=== PATIENT | female | born 1965 | race Caucasian/White ===

== ENCOUNTER → 2016-11-03 | Outpatient (CLI) | payer OTHER ==
[~2016-11-03] MED LIST: ASPIRIN 81MG TA81 MG PO; BUPROPION HYDR150 M1 PO; BYSTOLIC5 MG PO; MEGA BIOTIN10000 MCG PO; NOMEDS XX; NORCO 325 MG-51 TAB PO; ONE DAILY FOR1 EACH PO; PEPCID 20MG TAB20 MG PO; PHENERGAN 2525 MG/ML PO; PROTONIX 40MG T40 MG PO; REMERON15 MG PO; WELLBUTRIN XL300 MG PO; XANAX 0.25MG0.25 MG PO; XELODA500 MG PO; ZEBETA5 MG PO
[2016-11-03 11:15] VITALS: BP 127/83
== END ==
LOC: COP 10:00
DX: C18.9 Malignant neoplasm of colon, unspecified (principal); Z45.2 Encounter for adjustment and management of vascular access device
CPT/HCPCS: J1642

== ENCOUNTER → 2016-11-20 | Outpatient (CLI) | payer OTHER ==
[~2016-11-20] MED LIST changes: +PREDNISONE 20MG20 MG PO
--- NOTE | 2016-11-20 16:12 | RADIOLOGY REPORT PS360 ---
US THYROID HISTORY: Follow-up thyroid nodule THYROID NODULE ORDERING PHYSICIAN: Glenis Starr MD PATIENT AGE: 50 years COMPARISON: 04/09/2016 FINDINGS: Right lobe: 4.1 x 1.1 x 1.7 cm. Homogeneous echogenicity. A 2 mm cyst is present in the mid aspect of the right lobe. Left lobe: 4.1 x 1.3 x 1.9 cm. An isoechoic 6 x 5 mm nodule is present in the mid polar region on the left. A 5 mm slightly hypoechoic nodule is present in the lower pole on the left. Isthmus: Mildly thickened at 4 mm IMPRESSION: Stable appearance of the thyroid gland with a small cyst on the right and 2 subcentimeter nodules on the left which are stable. No new abnormalities evident
== END ==
LOC: RAD 14:16
DX: E04.1 Nontoxic single thyroid nodule (principal)

== ENCOUNTER → 2016-12-03 | Outpatient (CLI) | payer OTHER ==
--- NOTE | 2016-12-03 12:29 | RADIOLOGY REPORT PS360 ---
BONE DENSITOMETRY(HIP:LT SPINE HISTORY: VERTEBRAL FX,LOW BACK PAIN ORDERING PHYSICIAN: BRIANA CALLE PATIENT AGE: 51 years COMPARISON: None FINDINGS: The BMD measured at the right femoral neck is 0.922 g/cm squared with a T score of -0.8. This is considered normal according to the World Health Organization criteria. Fracture risk is low. Recommend follow up exam november 2018. The mean density of L1 L4 is 1.281 g/sq cm with a T score of 0.8. Images demonstrate a sclerotic region in the right hip at the intertrochanteric region which may be due to bone island IMPRESSION: Normal bone density
== END ==
LOC: RAD 10:46
DX: M54.5 Low back pain (principal)

== ENCOUNTER 2017-03-25 09:14 | Outpatient (CLI) | payer OTHER ==
[~2017-03-25 09:14] MED LIST changes: +CENTRUM SILVER1 EACH PO
[2017-03-25 09:19] LABS: HEMOGLOBIN 14.4 g/dL (12.2-16.2); LYMPH # 1.8 K/mm3 (0.7-4.5); LYMPH % 23.4 % (10-50.0)
[2017-03-25 09:32] LABS: BUN 10 mg/dL (7-18)
[2017-03-25 09:36] LABS: GFR (ESTIMATED) 88 ML/MIN (59-)
--- NOTE | 2017-03-25 12:06 | RADIOLOGY REPORT PS360 ---
CT CHEST W/ CONTRAST INDICATION: COLON CANCER, follow-up: Cancer ORDERING PHYSICIAN: Guy Meléndez MD PATIENT AGE: 51 years COMPARISON: None TECHNIQUE: Axial images are obtained with 75 mL Isovue-370 contrast. Sagittal and coronal reformatted images are reviewed as well. FINDINGS: Small aortopulmonic lymph node once again noted slightly less apparent when compared to the previous exam. No mediastinal or hilar adenopathy or mass. There is an azygos fissure is a normal variant. Calcified nodules present in the right upper lobe posteriorly as before. Calcified granuloma is present in the right upper lobe anteriorly as before there is a stable 3 mm noncalcified nodule right upper lobe. A subtle noncalcified 3 mm nodular opacity is present in the left apex anteriorly and one posteriorly both stable. No new nodules are evident. No infiltrates or effusions. No destructive bony process. MediPort catheter is present via right subclavian approach IMPRESSION: Stable CT appearance of the chest with no convincing evidence of metastatic disease
--- NOTE | 2017-03-25 12:11 | RADIOLOGY REPORT PS360 ---
CT ABD PELVIS W/ CONTRAST CLINICAL INDICATION: Follow-up cancer of the colon COLON CANCER ORDERING PHYSICIAN: Guy Meléndez MD PATIENT AGE: 51 years COMPARISON: 12/25/2016 TECHNIQUE: Axial images obtained with sagittal and coronal reformats. PROCEDURE: Oral Contrast: Redicat IV Contrast: 75 mL Isovue-370 performed in conjunction with the chest CT. FINDINGS: No focal liver lesion evident. The liver, gallbladder, spleen, adrenal glands, and pancreas have an unremarkable appearance. No renal calculi or hydronephrosis. No renal mass is evident. Small left renal cortical cysts unchanged. No retroperitoneal or intraperitoneal adenopathy or mass. Prior hysterectomy. No evidence of appendicitis or diverticulitis. Unremarkable appearing urinary bladder. No lytic or blastic changes there is a small sclerotic focus involving the L5 vertebral body superiorly nonspecific and unchanged. Sclerotic area also is present in the right proximal femur at the intertrochanteric region may be due to bone island unchanged. IMPRESSION: 1. No change with no acute finding. 2. No convincing evidence of metastatic disease
== END 2017-03-25 10:05 | disposition home or self-care (01) ==
LOC: COP 09:14 → RAD 09:14
PROVIDERS: Internal Medicine
DX: C18.9 Malignant neoplasm of colon, unspecified (principal)
CPT/HCPCS: J1642; Q9967

== ENCOUNTER 2017-04-22 09:07 | Outpatient (CLI) | payer OTHER | END 2017-04-22 09:20 | disposition home or self-care (01) | LOC: COP 09:07 | DX: C18.9 Malignant neoplasm of colon, unspecified (principal); C78.7 Secondary malignant neoplasm of liver and intrahepatic bile duct; Z45.2 Encounter for adjustment and management of vascular access device | CPT/HCPCS: J1642 ==

== ENCOUNTER 2017-06-05 13:30 | Outpatient (CLI) | payer OTHER ==
[2017-06-05 13:40] VITALS: BP 129/76
== END 2017-06-05 13:50 | disposition home or self-care (01) ==
LOC: COP 13:30
DX: C18.9 Malignant neoplasm of colon, unspecified (principal); C78.7 Secondary malignant neoplasm of liver and intrahepatic bile duct; Z45.2 Encounter for adjustment and management of vascular access device
CPT/HCPCS: J1642

== ENCOUNTER 2017-06-25 08:41 | Outpatient (CLI) | payer OTHER ==
[2017-06-25 08:46] LABS: HEMOGLOBIN 14.6 g/dL (12.2-16.2); LYMPH # 1.2 K/mm3 (0.7-4.5); LYMPH % 17.3 % (10-50.0)
[2017-06-25 08:57] LABS: BUN 10 mg/dL (7-18)
[2017-06-25 08:58] LABS: GFR (ESTIMATED) 66 ML/MIN (59-)
--- NOTE | 2017-06-25 10:45 | RADIOLOGY REPORT PS360 ---
CT CHEST W/ CONTRAST INDICATION: Follow-up: Cancer and thyroid nodules COLON CA, THYROID NODULES ORDERING PHYSICIAN: Guy Meléndez MD PATIENT AGE: 51 years COMPARISON: 03/25/2017 TECHNIQUE: Axial images are obtained with contrast. Sagittal and coronal reformatted images are reviewed as well. FINDINGS: There is a right subclavian Mediport catheter present. There is an azygos fissure is a normal variant. An aortopulmonic lymph node is again noted measuring 16 x 11 mm not significant changed. No other enlarged mediastinal or hilar nodes are evident. No obvious thyroid nodules however the superior aspect of the upper poles are not completely imaged There are scattered calcified granulomas. No suspicious pulmonary nodules are evident with no convincing evidence of pulmonary metastasis. The previously described 3 mm nodules in both upper lobes are unchanged. No new nodules are evident. No effusions or infiltrates. No bony destructive process. IMPRESSION: Stable CT appearance of the chest with no convincing evidence of metastatic disease. Stable mildly enlarged aortopulmonic lymph node
--- NOTE | 2017-06-25 17:05 | RADIOLOGY REPORT PS360 ---
CT SOFT TISSUE NECK W/CONTRAST INDICATION: COLON CA, THYROID NODULES ORDERING PHYSICIAN: Guy Meléndez MD PATIENT AGE: 51 years COMPARISON: Ultrasound dating 09/17/2015 from outside institution TECHNIQUE: Axial images are obtained with contrast. Sagittal and coronal reformatted images are reviewed as well. FINDINGS: There are scattered small lymph nodes present in the neck bilaterally in the jugulodigastric area measuring up to 15 x 14 mm on the right and 12 x 7 mm on the left. The thyroid gland shows fairly homogeneous texture. There is a subtle 4 mm area of decreased enhancement in the mid aspect of the left lobe medially which may correspond to the sonographic abnormality. No other significant anomalies are evident. There are mild degenerative changes in the cervical spine. The nasopharynx has an unremarkable appearance. No sinus air-fluid level evident. No mastoid effusion. The epiglottis is unremarkable glottic region has an unremarkable appearance. IMPRESSION: 1. 4 mm isodensity in the left lobe of the thyroid gland suggesting a small nodule that corresponds to the outside ultrasound. 2. Scattered small lymph nodes in the neck. 3. Otherwise negative CT of the neck with contrast IMPRESSION:
--- NOTE | 2017-06-25 17:14 | RADIOLOGY REPORT PS360 ---
CT ABD PELVIS W/ CONTRAST CLINICAL INDICATION: COLON CA, THYROID NODULES ORDERING PHYSICIAN: Guy Meléndez MD PATIENT AGE: 51 years COMPARISON: 09/05/2015 TECHNIQUE: Axial images obtained with sagittal and coronal reformats. PROCEDURE: Oral Contrast: Redicat IV Contrast: 50 mL of Isovue-370 . FINDINGS: The liver, gallbladder, spleen, adrenal glands, pancreas, have an unremarkable appearance. No hydronephrosis or obstructing ureteral calculus. Small cysts are present along the lower pole the left kidney. There is been partial colectomy of the descending colon with removal of the previously noted in the descending colon. No adenopathy. No abnormal fluid collection. No residual mass. There has been a prior hysterectomy. There is a sclerotic focus in the proximal left femur unchanged. No obvious bony destructive lesions. IMPRESSION: 1. Status post left hemicolectomy of the proximal descending colon. 2. No convincing evidence of metastatic disease.
== END 2017-06-25 09:45 | disposition home or self-care (01) ==
LOC: COP 08:41 → RAD 09:00 → COP 09:45
PROVIDERS: Internal Medicine
DX: C18.9 Malignant neoplasm of colon, unspecified (principal); Z45.2 Encounter for adjustment and management of vascular access device; E07.9 Disorder of thyroid, unspecified
CPT/HCPCS: J1642; Q9967